=== PATIENT | male | born 1970 | race Caucasian/White ===

== ENCOUNTER 2021-03-12 13:41 | Emergency (ER) | payer MEDICAID, SELFPAY ==
[~2021-03-12] VITALS: Ht 170.2 cm; Wt 98.9 kg
[2021-03-12 15:39] VITALS: BP 117/78
[2021-03-12] MEDS ORDERED: ROBAC PO (16:24)
[2021-03-12 16:36] VITALS: BP 120/77
--- NOTE | 2021-03-12 16:36 | NUR ---
Patient discharged with v/s stable. Written and verbal after care instructions given FOR ACUTE BRONCHITIS and explained. Patient alert, oriented and verbalized understanding of instructions. Ambulatory with steady gait. All questions addressed prior to discharge. ID band removed. Patient advised to follow up with PMD. Rx of GUAIFENESIN WITH CODEINE given. Patient educated on indication of medication including possible reaction and side effects. Opportunity to ask questions provided and answered.
== END 2021-03-12 16:36 | disposition home or self-care (01) ==
LOC: MED 13:41
DX: U07.1 COVID-19 (principal); J20.9 Acute bronchitis, unspecified; Z98.890 Other specified postprocedural states; Z79.899 Other long term (current) drug therapy
CPT/HCPCS: 71045; 99284; U0003

== ENCOUNTER 2021-10-13 10:16 | Emergency (ER) | payer MEDICAID, OTHER ==
[~2021-10-13] VITALS: Ht 170.2 cm; Wt 99.8 kg
[~2021-10-13 10:16] MED LIST: ROBAC PO
[2021-10-13 10:25] VITALS: BP 115/75
--- NOTE | 2021-10-13 10:36 | NUR ---
PT IN ROOM 8 ON REFRIGERATING OILER
--- NOTE | 2021-10-13 10:46 | NUR ---
51YR OLD MALE BIB SELF C/0 L ARM PAIN X3DAYS . PAIN RADIATES FROM ARM TO NECK TO MID BACK. PAIN LEVEL 10/10. DENIES INJURY OR TRAUMA. PT ON REPRODUCER. HOB ELEVATED. PT STATES HE HAS RECENT GALLSTONES. PT IS A&OX4 SKIN IS WARM AND DRY. NKDA HTN
[2021-10-13] MEDS ORDERED: ASPIRIN 325 MG TAB PO ONE (10:50)
[2021-10-13] MEDS ORDERED: KETOROLAC 30 MG/ML VIAL IM ONE (11:05)
[2021-10-13] MEDS ORDERED: diazePAM 5 MG TAB PO ONE (11:05)
--- NOTE | 2021-10-13 11:40 | NUR ---
PER ERMD INSTRUCTIONS PT WAS GIVEN A SHOULDER IMMOBILIZER SLING, +CMS BEFORE AND AFTER SLING WAS FITTED, PT TOLERATED THE SLING WELL
--- NOTE | 2021-10-13 11:43 | NUR ---
AFTER SEVERAL MINUTES PT ASKED FOR THE SLING TO BE REMOVED, PT CLAIMED IT CAUSED HIM MORE DISCOMFORT
[2021-10-13] MEDS ORDERED: ACET-8386 PO (12:40)
[2021-10-13] MEDS ORDERED: NAPR-54 PO (12:40)
[2021-10-13] MEDS ORDERED: HYDROcodone/APAP 5/325 MG 1 TAB TAB PO ONE (13:00)
--- NOTE | 2021-10-13 13:00 | NUR ---
Patient discharged with v/s stable. Written and verbal after care instructions given and explained. Patient verbalized understanding. Ambulatory with steady gait. All questions addressed prior to discharge. Advised to follow up with PMD.
== END 2021-10-13 13:00 | disposition home or self-care (01) ==
LOC: MED 10:16
DX: S46.812A Strain of other muscles, fascia and tendons at shoulder and upper arm level, left arm, initial encounter (principal); F17.210 Nicotine dependence, cigarettes, uncomplicated; Z79.899 Other long term (current) drug therapy; Z98.890 Other specified postprocedural states; X58.XXXA Exposure to other specified factors, initial encounter; Y93.89 Activity, other specified; Y92.89 Other specified places as the place of occurrence of the external cause; Y99.8 Other external cause status
CPT/HCPCS: 36415; 71045; 93005; 96372; 99283; J1885; Q0092; 99284

== ENCOUNTER 2023-05-25 13:02 | Emergency (ER) | payer OTHER ==
[~2023-05-25] VITALS: Ht 170.2 cm; Wt 99.8 kg
[~2023-05-25 13:02] MED LIST changes: +ACET-8905 PO; +NAPR-54 PO
[2023-05-25 13:28] VITALS: BP 122/66; PULSE 74; RESP 19; TEMP 98.5; O2SAT 98
[2023-05-25 14:22] VITALS: O2SAT 98
[2023-05-25 14:26] VITALS: BP 120/64; TEMP 98.2
[2023-05-25] MEDS: DEXAMETHASONE 10 MG/ML VIAL IM ONE (14:33)
[2023-05-25] MEDS: ALBUTEROL SULFATE/IPRATROPIU 3 ML SOL IH ONE (14:38)
[2023-05-25 14:39] VITALS: PULSE 55; RESP 16; O2SAT 99
[2023-05-25] MEDS ORDERED: ALBU0.0912 IH (15:23)
[2023-05-25] MEDS ORDERED: PROM118S5 PO (15:23)
[2023-05-25] MEDS ORDERED: PRED20TA5 PO (15:23)
== END 2023-05-25 15:29 | disposition home or self-care (01) ==
LOC: MED 13:02
DX: J20.9 Acute bronchitis, unspecified (principal); F17.210 Nicotine dependence, cigarettes, uncomplicated; Z71.6 Tobacco abuse counseling; Z79.899 Other long term (current) drug therapy
CPT/HCPCS: 71045; 94640; 96372; 99283; J1100